=== PATIENT | male | born 1950 | race Caucasian/White ===

== ENCOUNTER 2017-05-24 07:43 | Day surgery (SDC) | payer OTHER ==
[2017-05-23 14:05] VITALS: BMI 27.8
[2017-05-24] MEDS ORDERED: LIDOCAINE HCL/PF 2% SDV 5ML VIAL ONE (09:11)
[2017-05-24] MEDS ORDERED: PROPOFOL 20 ML ONE ×4 (09:12)
[2017-05-24 10:02] VITALS: TEMP 98
[2017-05-24 10:19] VITALS: BP 123/42
[2017-05-24 13:49] VITALS: PULSE 50
== END 2017-05-24 11:10 | disposition home or self-care (01) ==
LOC: JASU-ENDO 07:43
PROVIDERS: ATTEND Internal Medicine Gastroenterology
PROC: 0DJD8ZZ Inspection of Lower Intestinal Tract, Via Natural or Artificial Opening Endoscopic (ICD-10-PCS; principal; 2017-05-24 09:00)
DX: Z12.11 Encounter for screening for malignant neoplasm of colon (principal); Z86.010 Personal history of colon polyps; K92.1 Melena; K57.30 Diverticulosis of large intestine without perforation or abscess without bleeding; K64.8 Other hemorrhoids